=== PATIENT | male | born 1950 | race Caucasian/White ===

== ENCOUNTER 2019-07-19 09:42 | Day surgery (SDC) | payer MEDICARE, MEDICAID ==
[2019-07-18 09:43] LABS: BASOPHILS % (AUTO) 0.7 % (0-1); EOSINOPHILS # (AUTO) 0.1 X10'3 (0-0.9); EOSINOPHILS % (AUTO) 1.9 % (0-6); HEMATOCRIT 42.5 % (42.0-52.0); HEMOGLOBIN 14.1 g/dl (14.0-17.9); LYMPHOCYTES # (AUTO) 2.1 X10'3 (1.1-4.8); MEAN CORPUSCULAR HEMOGLOBIN 29.8 PG (27.0-31.0); MEAN CORPUSCULAR HGB CONC 33.1 g/dL (33.0-36.5); MEAN CORPUSCULAR VOLUME 89.8 FL (78-98); MEAN PLATELET VOLUME 9.7 FL (7.4-10.4); MONOCYTES # (AUTO) 0.6 X10'3 (0-0.9); MONOCYTES % (AUTO) 8.6 % (2-12); NEUTROPHILS # (AUTO) 3.8 X10'3 (1.8-7.7); NEUTROPHILS % (AUTO) 56.8 % (42-75); PLATELET COUNT 266 X10'3 (140-440); RED BLOOD COUNT 4.73 X10'6 (4.70-6.10); RED CELL DISTRIBUTION WIDTH 13.2 % (11.5-14.5); WHITE BLOOD COUNT 6.7 X10'3 (4.5-11.0)
[2019-07-18 09:56] LABS: PARTIAL THROMBOPLASTIN TIME 27 SECONDS (22-32)
[2019-07-18 10:01] LABS: ALANINE AMINOTRANSFERASE 20 U/L (12-78); ALBUMIN 4.3 G/DL (3.4-5.0); ALBUMIN/GLOBULIN RATIO 1.2 (1.1-1.5); ALKALINE PHOSPHATASE 70 IU/L (46-116); ANION GAP 10 (8-16); ASPARTATE AMINO TRANSFERASE 23 U/L (10-37); BLOOD UREA NITROGEN 17 MG/DL (7-18); BUN/CREATININE RATIO 15.3 (5.4-32.0); CALCIUM 9.3 MG/DL (8.5-10.1); CHLORIDE 105 MMOL/L (99-107); CREATININE 1.11 MG/DL (0.60-1.10); GLUCOSE 143 MG/DL (70-104); POTASSIUM 4.3 MMOL/L (3.5-5.1); SODIUM 142 MMOL/L (135-145); TOTAL CARBON DIOXIDE 27.1 MMOL/L (24-32); eGFR 66 ML/MIN
[2019-07-18 10:19] LABS: BILIRUBIN,TOTAL 0.5 MG/DL (0.1-1.0)
[2019-07-19] VITALS (11 sets, daily range): BP systolic 120–151; BP diastolic 69–84
[~2019-07-19] VITALS: Ht 182.9 cm; Wt 91.0 kg
[2019-07-19] MEDS ORDERED: nitroGLYCERIN 0.4mg SUBLingual tab SL PRN (10:05)
[2019-07-19] MEDS ORDERED: LORazepam 0.5 MG tablet PO PRN (10:05)
[2019-07-19] MEDS ORDERED: diphenhydrAMINE 25mg capsule PO PRN (10:05)
[2019-07-19] MEDS ORDERED: normal saline 1,000 ML IV SCH (10:05)
[2019-07-19] MEDS ORDERED: BUSP15TA3 PO (10:25)
[2019-07-19] MEDS ORDERED: GABA-534 PO (10:25)
[2019-07-19] MEDS ORDERED: NITR0.4T51 SL (10:25)
[2019-07-19] MEDS ORDERED: CYCL-1 PO (10:25)
[2019-07-19] MEDS ORDERED: FENO67CA PO (10:25)
[2019-07-19] MEDS ORDERED: DULO-31 PO (10:25)
[2019-07-19] MEDS ORDERED: ASPI1TAB2 PO (10:25)
[2019-07-19] MEDS ORDERED: PRAV20TA4 PO (10:25)
[2019-07-19] MEDS ORDERED: CLON0.5T23 PO (10:25)
[2019-07-19] MEDS ORDERED: KEN0.1O TP (10:25)
[2019-07-19] MEDS ORDERED: ASPI81TA52 PO (10:25)
[2019-07-19] MEDS ORDERED: FLO0.4C PO (10:25)
[2019-07-19] MEDS ORDERED: LIDOcaine 1% (10mg/ml)w/preservative injection 20ml MDV ONE (12:54)
[2019-07-19] MEDS ORDERED: iohexol 350MG/ML 100ml bottle IV ONE (12:54)
[2019-07-19] MEDS ORDERED: fentaNYL/PF 50MCG/1 ML 2ML syringe ONE (12:54)
[2019-07-19] MEDS ORDERED: iohexol 350 MG/ML 50ML vial IV ONE (12:54)
[2019-07-19] MEDS ORDERED: midazolam 2 mg/2 ml injection ONE ×2 (12:54→13:45)
[2019-07-19 14:16] LABS: ISTAT HGB ART 11.9 g/dl (14.0-18.0); ISTAT Hct ART 35 %PCV (42-52); ISTAT O2 SATURATION ARTERIAL 98 % (95-98); ISTAT SOURCE ART
[2019-07-19 14:16] LABS: ISTAT Hct MIX 35 %PCV (42-52); ISTAT O2 SATURATION MIX VENOUS 75 % (60-80); ISTAT SOURCE MIX
[2019-07-19] MEDS ORDERED: OXAZEpam 15mg capsule PO PRN (14:30)
[2019-07-19] MEDS ORDERED: HYDROcodone/acetaminophen 10/325mg tab PO PRN (14:30)
[2019-07-19] MEDS ORDERED: proCHLORperazine 10 MG/2 ml inj IV PRN (14:30)
[2019-07-19] MEDS ORDERED: HYDROcodone/acetaminophen 5mg/325mg tablet PO PRN (14:30)
[2019-07-19] MEDS ORDERED: ondansetron/PF 4mg/2ml inj IV PRN (14:30)
== END 2019-07-19 19:45 | disposition home or self-care (01) ==
LOC: SSTAY O 09:42
PROVIDERS: ATTEND Internal Medicine Cardiovascular Disease
DX: R94.39 Abnormal result of other cardiovascular function study (principal); I25.10 Atherosclerotic heart disease of native coronary artery without angina pectoris; G47.33 Obstructive sleep apnea (adult) (pediatric); E11.9 Type 2 diabetes mellitus without complications; I10 Essential (primary) hypertension; Z79.899 Other long term (current) drug therapy; Z79.01 Long term (current) use of anticoagulants
CPT/HCPCS: 36415; 80053; 82803; 83880; 84439; 84443; 84480; 85014; 85025; 85610; 85730; 93460; 99152; 99153; C1769; J1644; J2001; J2250; J3010; J7030; Q0163; Q9967; A4620; A6258; C1760

== ENCOUNTER 2022-03-12 09:56 | Day surgery (SDC) | payer MEDICARE, MEDICAID ==
[~2022-03-12] VITALS: Ht 182.9 cm; Wt 65.9 kg
[~2022-03-12 09:56] MED LIST: ASPI1TAB2 PO; ASPI81TA52 PO; BUSP15TA3 PO; CLON0.5T23 PO; CYCL-1 PO; DULO-31 PO; FENO67CA13 PO; FLO0.4C PO; GABA-534 PO; KEN0.1O TP; LIDOcaine Viscous 15ml cup ONE; MIDAZolam 1 MG/ML 5ML VIAL ONE; NITR0.4T51 SL; PRAV20TA4 PO; fentaNYL/PF 50MCG/1 ML 2ML syringe ONE
[2022-03-12 10:07] VITALS: BP 132/78
[2022-03-12] MEDS ORDERED: METF-437 (11:05)
[2022-03-12] MEDS ORDERED: BUPR2TAB11 (11:05)
[2022-03-12] MEDS ORDERED: QUET50TA24 (11:05)
[2022-03-12] MEDS ORDERED: DULO60CA65 (11:05)
[2022-03-12] MEDS ORDERED: OMEG-79 PO (11:11)
[2022-03-12] MEDS ORDERED: CHOL10008 PO (11:11)
[2022-03-12] MEDS ORDERED: CHOL100046 PO (11:11)
[2022-03-12 12:42] VITALS: BP 138/100
[2022-03-12 12:52] VITALS: BP 137/84
[2022-03-12 13:02] VITALS: BP 133/20
[2022-03-12 13:12] VITALS: BP 129/79
== END 2022-03-12 13:29 | disposition home or self-care (01) ==
LOC: GI LAB 09:56
PROVIDERS: ATTEND Specialist
DX: D12.3 Benign neoplasm of transverse colon (principal); D17.5 Benign lipomatous neoplasm of intra-abdominal organs; K57.30 Diverticulosis of large intestine without perforation or abscess without bleeding; K64.4 Residual hemorrhoidal skin tags; K29.70 Gastritis, unspecified, without bleeding; K29.80 Duodenitis without bleeding; K44.9 Diaphragmatic hernia without obstruction or gangrene; K21.00 Gastro-esophageal reflux disease with esophagitis, without bleeding; K59.00 Constipation, unspecified; Z79.899 Other long term (current) drug therapy; Z98.890 Other specified postprocedural states
CPT/HCPCS: 43239; 45381; 45385; 99153; C1773; G0500; J2250; J3010; J7030; Z7512; 88305; 88342; 99152; A4620

== ENCOUNTER 2025-04-06 08:44 | Outpatient (CLI) | payer MEDICARE, MEDICAID ==
[~2025-04-06 08:44] MED LIST changes: +BUPR2TAB11; +CHOL100046 PO; +CHOL25CA2 PO; -CYCL-1 PO; -GABA-534 PO; +GABA-535 PO; -LIDOcaine Viscous 15ml cup ONE; +METF-437; -MIDAZolam 1 MG/ML 5ML VIAL ONE; +OMEG-79 PO; +PRAV20TA17 PO; -PRAV20TA4 PO; +QUET50TA24; -fentaNYL/PF 50MCG/1 ML 2ML syringe ONE
--- NOTE | 2025-04-06 10:45 | RADIOLOGY REPORT ---
INDICATION: CHRONIC BACK PAIN COMPARISON: None TECHNIQUE: 3 views of the lumbar spine were obtained. FINDINGS: The lumbar vertebral alignment is normal. Multilevel degenerative changes most severe L4-L5 through L5-S1 causing moderate to severe neural for aminal and spinal canal stenosis. Chronic compression fracture involving the superior endplate of the L2 vertebral body. No acute fracture, vertebral compression deformity or aggressive osseous lesions. The paravertebral soft tissues are grossly unremarkable. IMPRESSION: No acute fracture or subluxation.
== END 2025-04-06 23:59 | disposition home or self-care (01) ==
LOC: RAD 08:44
PROVIDERS: ATTEND Student in an Organized Health Care Education/Training Program
DX: S32.020A Wedge compression fracture of second lumbar vertebra, initial encounter for closed fracture (principal); M47.817 Spondylosis without myelopathy or radiculopathy, lumbosacral region; M48.07 Spinal stenosis, lumbosacral region; M54.50 Low back pain, unspecified; X58.XXXA Exposure to other specified factors, initial encounter; Y93.89 Activity, other specified; Y92.89 Other specified places as the place of occurrence of the external cause; Y99.8 Other external cause status
CPT/HCPCS: 72110